=== PATIENT | female | born 1985 | race Caucasian/White ===

== ENCOUNTER 2018-09-21 18:19 | Emergency (ER) | payer SELFPAY ==
[2018-09-21] MEDS ORDERED: NS 0.9% 1000 ML* 2,000 ML IV ONE (18:36)
[2018-09-21] MEDS ORDERED: Ondansetron INJ* 2 MG/ML VIAL IV ONE (18:36)
--- NOTE | 2018-09-21 18:43 | ED ---
Dizziness - HPI Summary HPI Summary: Patient is a 33 y/o F brought in via ambulance presenting to ED with complaints of dizziness characterized as a light-headedness, nausea, and weakness onsetting at 1730 today while at work. Sx gradually worsened and she went to go lie down on the floor. As she attempted to sit up, her nausea and light- headedness worsened and she felt near syncopal. EMS states that patient had stated her "legs feel like jelly" and that BG was "good". She did not vomit. Patient drove from [place] today, left at about 1045. She is not on any medications, PMHx of mitral valve prolapse that is "functional" per patient. In the room, she states that she feels nauseous and weak but not dizzy or near syncopal. Patient has not had flu shot. No FMHx of blood clots, no Hx of falls. Fever, chills, erythema of eyes, sore throat, chest pain, back pain, SOB, cough , abdominal pain, N/V, dysuria, hematuria, myalgia, edema, rash and dizziness are not reported. On triage, pain is rated 0/10, nothing is noted to aggravate/ alleviate Sx. Home medications and allergies are reviewed. - History Of Current Complaint Chief Complaint: EDGeneral Stated Complaint: WEAKNESS Time Seen by Provider: 09/21/18 18:21 Hx Obtained From: Patient Onset/Duration: Resolved - dizziness, near syncopy Timing: Hours Severity Currently: None Character: Lightheaded, Dizzy Aggravating Factor(s): Nothing Alleviating Factor(s): Nothing Associated Signs And Symptoms: Positive: Nausea, Other: - Fever, chills, erythema of eyes, sore throat, chest pain, SOB, cough, abdominal pain, N/V, dysuria, hematuria, myalgia, edema, rash, back pain are not reported, near syncope, dizziness, nausea and fatigue are endorsed.. Negative: Vomiting, Chest Pain, SOB, Fever, Chills PMH/Surg Hx/FS Hx/Imm Hx Sensory History: Denies: Hx Legally Blind, Hx Deafness Opthamlomology History: Denies: Hx Legally Blind EENT History: Denies: Hx Deafness Infectious Disease History: No Infectious Disease History: Denies: Traveled Outside the [place] in Last 30 Days - Family History Known Family History: Positive: Diabetes Negative: Blood Disorder - no FMHx of blood clots - Social History Alcohol Use: Occasionally Substance Use Type: Reports: None Smoking Status (MU): Current Every Day Smoker Review of Systems Positive: Fatigue. Negative: Fever, Chills Negative: Erythema Negative: Sore Throat Negative: Chest Pain Negative: Shortness Of Breath, Cough Positive: Nausea. Negative: Abdominal Pain, Vomiting Negative: dysuria, hematuria Negative: Myalgia, Edema Negative: Rash Neurological: Other - POSITIVE - DIZZINESS Positive: Syncope - NEAR All Other Systems Reviewed And Are Negative: Yes Physical Exam - Summary Physical Exam Summary: Constitutional: Well-developed, Well-nourished, Alert. (-) Distressed Skin: Warm, Dry HENT: Normocephalic; Atraumatic Eyes: Conjunctiva normal Neck: Musculoskeletal ROM normal neck. (-) JVD, (-) Stridor, (-) Tracheal deviation Cardio: tachycardic, rate normal, Heart sounds normal; Intact distal pulses; The pedal pulses are 2+ and symmetric. Radial pulses are 2+ and symmetric. (-) Murmur Pulmonary/Chest wall: Effort normal. (-) Respiratory distress, (-) Wheezes, (-) Rales Abd: Soft, (-) epigastric tenderness, (-) Distension, (-) Guarding, (-) Rebound Musculoskeletal: (-) Edema Lymph: (-) Cervical adenopathy Neuro: Alert, Oriented x3 Psych: Mood and affect Normal Triage Information Reviewed: Yes Vital Signs On Initial Exam: Initial Vitals Temp Pulse Resp BP Pulse Ox 98.4 F 98 17 118/75 98 09/21/18 18:20 09/21/18 18:20 09/21/18 18:20 09/21/18 18:20 09/21/18 18:20 Vital Signs Reviewed: Yes Diagnostics - Vital Signs Vital Signs Temp Pulse Resp BP Pulse Ox 09/21/18 18:20 98.4 F 98 17 118/75 98 - Laboratory Result Diagrams: 09/21/18 18:48 09/21/18 18:48 Lab Statement: Any lab studies that have been ordered have been reviewed, and results considered in the medical decision making process. - EKG 1852 Cardiac Rate: NL - rate of 75 BPM EKG Rhythm: Sinus Rhythm Summary of EKG Findings: EKG showed sinus rhythm with rate of 75 BPM, no STEMI. Re-Evaluation - Re-Evaluation First Eval Re-Evaluation Time: 20:04 Change: Improved Comment: Patient states that she feels a lot better. Discussed results of labs and tests with patient, she will be discharged to home. She is agreeable with this plan. Dizzy Course/Dx - Course Course Of Treatment: Patient is a 33 y/o F brought in via ambulance presenting to ED with complaints of dizziness characterized as a light-headedness, nausea, and weakness onsetting at 1730 today while at work. Sx gradually worsened and she went to go lie down on the floor. As she attempted to sit up, her nausea and light-headedness worsened and she felt near syncopal. EMS states that patient had stated her "legs feel like jelly" and that BG was "good". She did not vomit. Patient drove from [place] today, left at about 1045. She is not on any medications, PMHx of mitral valve prolapse that is "functional" per patient. In the room, she states that she feels nauseous and weak but not dizzy or near syncopal. Patient has not had flu shot. No FMHx of blood clots, no Hx of falls. On physical exam, patient is noted to be tachycardic. EKG showed sinus rhythm with rate of 75 BPM, no STEMI. Labs showed WBC 9.9, creatinine 0.98, lactic acid 1.5, lipase 28, beta HCG < 0.6. UA was negative. During ED course, patient received fluids and Zofran 4 mg IV ED ONCE ONE. Patient states that she feels a lot better. Discussed results of labs and tests with patient, she will be discharged to home. She is agreeable with this plan. - Diagnoses Differential Diagnosis/HQI/PQRI: Other - Viral syndrome, UTI, , dehydration Provider Diagnoses: Orthostasis, Dehydration Discharge - Sign-Out/Discharge Documenting (check all that apply): Patient Departure - discharge - Discharge Plan Condition: Stable Disposition: HOME Patient Education Materials: Dehydration (ED), Near Syncope (ED), Dizziness (ED ) Forms: *Work Release Referrals: [facility] [Outside] - 2 Days Additional Instructions: RETURN TO THE EMERGENCY DEPARTMENT FOR CHANGING OR WORSENING SYMPTOMS. FOLLOW UP WITH PRIMARY CARE PHYSICIAN IN 2 DAYS. - Attestation Statements Document Initiated by Scribe: Yes Documenting Scribe: RJ TA Provider For Whom Scribe is Documenting (Include Credential): ROSE MARY REESE MD Scribe Attestation: IRJ, scribed for ROSE MARY REESE MD on 09/21/18 at 2015. Status of Scribe Document: Ready
[2018-09-21 18:58] LABS: ABS Basophils 0.1 10^3/ul (0-0.2); ABS Eosinophils 0.2 10^3/ul (0-0.6); ABS Lymphocytes 3.1 10^3/ul (1.0-4.8); ABS Monocytes 0.6 10^3/ul (0-0.8); ABS Neutrophils 5.9 10^3/ul (1.5-7.7); ABS Nucleated RBC 0 10^3/ul; Eosinophil % 1.7 %; Hematocrit 44 % (35-47); Hemoglobin 15.1 g/dl (12.0-16.0); Lymphocyte % 31.5 %; Mean Corpuscular HGB Conc 35 g/dl (31-36); Mean Corpuscular Hemoglobin 30 pg (27-31); Mean Corpuscular Volume 86 fL (80-97); Mean Platelet Volume 8.5 fL (7.4-10.4); Nucleated Red Blood Cells % 0.1; Platelet Count 236 10^3/ul (150-450); Red Blood Count 5.11 10^6/ul (4.00-5.40); Red Cell Distribution Width 13 % (10.5-15); White Blood Count 9.9 10^3/ul (3.5-10.8)
[2018-09-21 19:00] LABS: Urine Appearance Clear; Urine Bilirubin Negative (Negative); Urine Blood Negative (Negative); Urine Color Straw; Urine Glucose Negative (Negative); Urine Ketones Negative (Negative); Urine Nitrite Negative (Negative); Urine Protein Negative (Negative); Urine Specific Gravity 1.004 (1.010-1.030); Urine Urobilinogen Negative (Negative)
[2018-09-21 19:16] LABS: ALT 42 U/L (7-52); AST 21 U/L (13-39); Albumin 4.3 g/dL (3.2-5.2); Albumin/Globulin Ratio 1.2 (1-3); Alkaline Phosphatase 52 U/L (34-104); Anion Gap 6 mmol/L (2-11); BUN/Creatinine Ratio 16.3 (8-20); Blood Urea Nitrogen 16 mg/dL (6-24); CO2 Carbon Dioxide 26 mmol/L (22-32); Calcium 9.4 mg/dL (8.6-10.3); Chloride 105 mmol/L (101-111); EGFR Non-African American 64.6 (>60); Globulin 3.7 g/dL (2-4); Glucose 96 mg/dL (70-100); Potassium 4.1 mmol/L (3.5-5.0); Sodium 137 mmol/L (135-145)
[2018-09-21 19:22] LABS: HCG Pregnancy < 0.60 mIU/mL
[2018-09-21] MEDS ORDERED: O ndansetron ODT 4MG 5TAB PRPK 4 MG PAK PO ONE (20:08)
[2018-09-21 20:10] VITALS: BP 129/93
== END 2018-09-21 20:09 | disposition home or self-care (01) ==
LOC: ED 18:19
DX: I95.1 Orthostatic hypotension (principal); E86.0 Dehydration; F17.200 Nicotine dependence, unspecified, uncomplicated; I34.1 Nonrheumatic mitral (valve) prolapse
CPT/HCPCS: 36415; 80053; 81003; 83605; 83690; 84702; 85025; 86140; 93005; 96361; 96374; 99283